=== PATIENT | female | born 1960 | race Caucasian/White ===

== ENCOUNTER 2020-01-17 16:25 | Emergency (ER) | payer BC ==
[~2020-01-17] VITALS: Ht 162.6 cm; Wt 62.1 kg
[~2020-01-17 16:25] MED LIST: MOTRIN; NAPROXEN; OMEP40EC24 PO; SYN.025 PO; [UNRECOGNIZED DRUG - CODE]
[2020-01-17 16:39] VITALS: BP 141/71
[2020-01-17] MEDS ORDERED: BACITRACIN OINT 500 UNITS/GM PKT TP ONE (17:00)
[2020-01-17] MEDS ORDERED: IBUPROFEN 600 MG TAB PO ONE (17:00)
[2020-01-17] MEDS ORDERED: LIDOCAINE 2% 1000 MG/50 ML VIAL INJ ONE (17:00)
[2020-01-17 17:58] VITALS: BP 141/71
== END 2020-01-17 17:54 | disposition home or self-care (01) ==
LOC: MED 16:25
DX: S91.201A Unspecified open wound of right great toe with damage to nail, initial encounter (principal); W22.8XXA Striking against or struck by other objects, initial encounter; Y93.89 Activity, other specified; Y92.89 Other specified places as the place of occurrence of the external cause; Y99.8 Other external cause status; Z90.49 Acquired absence of other specified parts of digestive tract; Z79.899 Other long term (current) drug therapy
CPT/HCPCS: 11730; 99284; J2001

== ENCOUNTER 2022-07-25 08:16 | Emergency (ER) | payer BC ==
[~2022-07-25] VITALS: Ht 162.6 cm; Wt 66.2 kg
[2022-07-25 08:23] VITALS: BP 135/72
--- NOTE | 2022-07-25 09:15 | NUR ---
DR YAÑEZ AT PT SIDE FOR EVAL
--- NOTE | 2022-07-25 09:31 | NUR ---
José Miguel urbina in [facility] - 07/25/22 at 0934 by MNRAYMONMD TAKEN TO XRAY VIA WC
--- NOTE | 2022-07-25 09:34 | NUR ---
PT WC TO XRAY
--- NOTE | 2022-07-25 10:13 | NUR ---
61 Y/O FEMALE BIB SELF C/O RIGHT BIG TOE PAIN RADIATING TO THE DORSAL PORTION OF THE FOOT X8DAYS S/P HITTING THE RAISED CONCRETE, AMBULATORY, NO BRUISING, SWELLING NOTED NKA PMH: ASTHMA, HYPOTHYROID
--- NOTE | 2022-07-25 10:41 | NUR ---
Patient discharged with v/s stable. Written and verbal after care instructions ABOUT FOOT CONTUSION given and explained. Patient verbalized understanding. Ambulatory with steady gait. All questions addressed prior to discharge. Advised to follow up with PMD.
== END 2022-07-25 10:41 | disposition home or self-care (01) ==
LOC: MED 08:16
DX: S90.31XA Contusion of right foot, initial encounter (principal); Z79.899 Other long term (current) drug therapy; Z90.49 Acquired absence of other specified parts of digestive tract; Z90.89 Acquired absence of other organs; W22.8XXA Striking against or struck by other objects, initial encounter; Y93.89 Activity, other specified; Y92.89 Other specified places as the place of occurrence of the external cause; Y99.8 Other external cause status
CPT/HCPCS: 73630; 99283